=== PATIENT | male | born 1975 | race Caucasian/White ===

== ENCOUNTER → 2016-08-26 | Outpatient (CLI) | payer OTHER ==
--- NOTE | 2016-08-27 21:57 | EKG ---
Date Performed: 08/26/2016 Time Performed: 14:07:56 PTAGE: 41 years EKG: Sinus rhythm Since previous tracing, no significant change noted NORMAL ECG PREVIOUS TRACING : 11/28/2015 12.19 DOCTOR: Maira Johnson Interpretating Date/Time 08/27/2016 21:56:29
== END ==
LOC: HCAV 13:54
PROVIDERS: ATTEND Family Medicine
DX: I95.9 Hypotension, unspecified (principal); R00.0 Tachycardia, unspecified
CPT/HCPCS: 93005

== ENCOUNTER 2017-08-13 15:01 | Emergency (ER) | payer OTHER ==
[~2017-08-13] VITALS: Ht 188 cm; Wt 111.0 kg
[2017-08-13 15:17] VITALS: BP 161/67; PULSE 99; RESP 17; TEMP 98.2; O2SAT 98
[2017-08-13 15:50] LABS: AUTOMATED NEUTROPHIL # 6.5 TH/MM3 (1.8-7.7); BASOPHIL # 0.1 TH/MM3 (0-0.2); BASOPHIL % 0.5 % (0.0-2.0); EOSINOPHIL # 0.2 TH/MM3 (0-0.4); EOSINOPHIL % 2.2 % (0.0-4.0); HEMATOCRIT 43.4 % (39.0-51.0); HEMOGLOBIN 15.7 GM/DL (13.0-17.0); LYMPH % 31.3 % (9.0-44.0); LYMPHOCYTE # 3.3 TH/MM3 (1.0-4.8); MEAN CELL VOLUME 87.8 FL (80.0-100.0); MEAN CORPUSCULAR HEMOGLOBIN 31.7 PG (27.0-34.0); MEAN PLATELET VOLUME 7.6 FL (7.0-11.0); MONO % 4.7 % (0.0-8.0); MONOCYTE # 0.5 TH/MM3 (0-0.9); NEUT % 61.3 % (16.0-70.0); PLATELET COUNT 367 TH/MM3 (150-450); RED BLOOD COUNT 4.94 MIL/MM3 (4.50-5.90); RED CELL DISTRIBUTION WIDTH 13.8 % (11.6-17.2); WHITE BLOOD COUNT 10.6 TH/MM3 (4.0-11.0)
[2017-08-13 16:00] VITALS: BP 137/68; PULSE 96; RESP 18; O2SAT 96
[2017-08-13 16:06] LABS: BILIRUBIN, URINE NEG (NEG); BLOOD, URINE NEG (NEG); GLUCOSE,URINE 1000 mg/dL (NEG); KETONE, URINE NEG (NEG); NITRITE,URINE NEG (NEG); PH, URINE 5.5 (5.0-8.5); URINE COLOR YELLOW (YELLW/STRAW); URINE LEUKOCYTE ESTERASE NEG (NEG)
[2017-08-13] MEDS ORDERED: CYMB60CA PO (16:16)
[2017-08-13] MEDS ORDERED: BUPR150XL PO (16:16)
[2017-08-13] MEDS ORDERED: FURO1TAB60 PO (16:16)
[2017-08-13] MEDS ORDERED: VITA10002 PO (16:16)
[2017-08-13] MEDS ORDERED: NOVOLOGP2 SQ (16:16)
[2017-08-13] MEDS ORDERED: INSU1.2I SQ (16:16)
[2017-08-13] MEDS ORDERED: VITA100018 PO (16:16)
[2017-08-13] MEDS ORDERED: ATOR20TA15 PO (16:16)
[2017-08-13] MEDS ORDERED: METO50TA PO (16:16)
[2017-08-13] MEDS ORDERED: LORA1TAB12 PO (16:16)
[2017-08-13] MEDS ORDERED: AMLO5TAB2 PO (16:16)
[2017-08-13] MEDS ORDERED: OXCA150T PO (16:16)
[2017-08-13] MEDS ORDERED: METF1000 PO (16:16)
[2017-08-13] MEDS ORDERED: IRON SUPP (16:16)
[2017-08-13 16:19] LABS: MEAN CORPUSCULAR HGB CONC 36.1 % (32.0-36.0)
[2017-08-13 16:29] LABS: ALBUMIN 4.5 GM/DL (3.4-5.0); ALT (GPT) 46 U/L (12-78); AST (GOT) 23 U/L (15-37); BICARBONATE 24.8 MEQ/L (21.0-32.0); BLOOD UREA NITROGEN 10 MG/DL (7-18); CALCIUM 9.6 MG/DL (8.5-10.1); CHLORIDE 106 MEQ/L (98-107); GLOMERULAR FILTRATION RATE 73 ML/MIN (>89); GLUCOSE,RANDOM 387 MG/DL (74-106); SODIUM (NA) 141 MEQ/L (136-145)
[2017-08-13] MEDS ORDERED: INSULIN ASPART 1,000 UNITS/10 ML VIAL SQ ONE (16:30)
[2017-08-13] MEDS ORDERED: SODIUM CHLOR 0.9% 1000 ML INJ 1,000 ML IV ONE ×2 (16:30)
[2017-08-13 16:31] LABS: ALKALINE PHOSPHATASE 144 U/L (45-117); TOTAL BILIRUBIN ADULT 0.3 MG/DL (0.2-1.0); TOTAL PROTEIN 7.9 GM/DL (6.4-8.2)
--- NOTE | 2017-08-13 17:16 | PD ---
HPI Chief Complaint: Diabetic Time Seen by Provider: 16:07 Travel History International Travel<30 days: No Contact w/Intl Traveler<30days: No Traveled to known affect area: No History of Present Illness HPI Is a 42-year-old man presents to the emergency department complaining of migrating pains in his head chest left shoulder back and arms. He is a history of arthritis, fibromyalgia. He states the pain in his left shoulder is been worse over the past week. Blood sugars have been out of control, and the 300s at home. Primary doctor is making an adjustment to his Metformin to a combination of metformin and another medication but the patient has not gotten medication from the pharmacy yet. Last A1c was reportedly 11. Was feeling worse at home and so came to the emergency department today. History Past Medical History Narrative Medical Diabetes Arthritis, fibromyalgia, chronic pain Depression and anxiety Social History Alcohol Use: No Tobacco Use: Yes ("WORKING ON QUITTING") Allergies-Medications (Allergen,Severity, Reaction): Coded Allergies: amitriptyline (Unverified Allergy, Severe, Edema, 08/13/17) nicotine (Unverified Allergy, Severe, Edema, 08/13/17) Sulfa (Sulfonamide Antibiotics) (Unverified Adverse Reaction, Severe, Rash , 08/13/17) Reported Meds & Prescriptions Reported Meds & Active Scripts Active Reported Metoprolol Tartrate 50 Mg Tab 50 Mg PO DAILY Oxcarbazepine 150 Mg Tab 150 Mg PO Q8HR Lorazepam 1 Mg Tab 1 Mg PO Q8H PRN Cymbalta DR (Duloxetine HCl) 60 Mg Capdr 60 Mg PO BID Wellbutrin Xl 24 HR (Bupropion HCl) 150 Mg Tab 450 Mg PO DAILY Amlodipine (Amlodipine Besylate) 5 Mg Tab 5 Mg PO DAILY Review of Systems Except as stated in HPI: all other systems reviewed are Neg Physical Exam Narrative GENERAL: 42-year-old man, well-appearing, no acute distress. SKIN: Focused skin assessment warm/dry. HEAD: Atraumatic. Normocephalic. EYES: Pupils equal and round. No scleral icterus. No injection or drainage. ENT: No nasal bleeding or discharge. Mucous membranes pink and moist. NECK: Trachea midline. No JVD. CARDIOVASCULAR: Regular rate and rhythm. No murmur appreciated. RESPIRATORY: No accessory muscle use. Clear to auscultation. Breath sounds equal bilaterally. GASTROINTESTINAL: Abdomen soft, non-tender, nondistended. Hepatic and splenic margins not palpable. MUSCULOSKELETAL: No obvious deformities. No clubbing. No cyanosis. No edema. NEUROLOGICAL: Awake and alert. No obvious cranial nerve deficits. Motor grossly within normal limits. Normal speech. PSYCHIATRIC: Appropriate mood and affect; insight and judgment normal. Data Data Last Documented VS Vital Signs Date Time Temp Pulse Resp B/P (MAP) Pulse Ox O2 Delivery O2 Flow Rate FiO2 08/13/17 16:00 96 18 137/68 (91) 96 Room Air 08/13/17 15:17 98.2 Orders Orders Complete Blood Count With Diff (08/13/17 15:21) Blood Glucose (08/13/17 15:21) Comprehensive Metabolic Panel (08/13/17 15:21) Urinalysis - C+S If Indicated (08/13/17 15:21) Sodium Chlor 0.9% 1000 Ml Inj (Ns 1000 M (08/13/17 16:30) Sodium Chlor 0.9% 1000 Ml Inj (Ns 1000 M (08/13/17 16:30) Iv Access Insert/Monitor (08/13/17 16:26) Insulin Aspart Inj (Novolog Inj) (08/13/17 16:30) Labs Laboratory Tests Test 08/13/17 15:42 White Blood Count 10.6 TH/MM3 Red Blood Count 4.94 MIL/MM3 Hemoglobin 15.7 GM/DL Hematocrit 43.4 % Mean Corpuscular Volume 87.8 FL Mean Corpuscular Hemoglobin 31.7 PG Mean Corpuscular Hemoglobin Concent 36.1 % Red Cell Distribution Width 13.8 % Platelet Count 367 TH/MM3 Mean Platelet Volume 7.6 FL Neutrophils (%) (Auto) 61.3 % Lymphocytes (%) (Auto) 31.3 % Monocytes (%) (Auto) 4.7 % Eosinophils (%) (Auto) 2.2 % Basophils (%) (Auto) 0.5 % Neutrophils # (Auto) 6.5 TH/MM3 Lymphocytes # (Auto) 3.3 TH/MM3 Monocytes # (Auto) 0.5 TH/MM3 Eosinophils # (Auto) 0.2 TH/MM3 Basophils # (Auto) 0.1 TH/MM3 CBC Comment AUTO DIFF Urine Color YELLOW Urine Turbidity CLEAR Urine pH 5.5 Urine Specific [place] 1.034 Urine Protein NEG mg/dL Urine Glucose (UA) 1000 mg/dL Urine Ketones NEG mg/dL Urine Occult Blood NEG Urine Nitrite NEG Urine Bilirubin NEG Urine Urobilinogen LESS THAN 2.0 MG/DL Urine Leukocyte Esterase NEG Urine WBC LESS THAN 1 /hpf Microscopic Urinalysis Comment CULT NOT INDICATED Blood Urea Nitrogen 10 MG/DL Creatinine 1.10 MG/DL Random Glucose 387 MG/DL Total Protein 7.9 GM/DL Albumin 4.5 GM/DL Calcium Level 9.6 MG/DL Alkaline Phosphatase 144 U/L Aspartate Amino Transf (AST/SGOT) 23 U/L Alanine Aminotransferase (ALT/SGPT) 46 U/L Total Bilirubin 0.3 MG/DL Sodium Level 141 MEQ/L Potassium Level 4.0 MEQ/L Chloride Level 106 MEQ/L Carbon Dioxide Level 24.8 MEQ/L Anion Gap 10 MEQ/L Estimat Glomerular Filtration Rate 73 ML/MIN MDM Medical Decision Making Medical Screen Exam Complete: Yes Emergency Medical Condition: Yes Interpretation(s) LABS: CBC is unremarkable. CMP is remarkable for glucose 387. UA with glucose. Differential Diagnosis Hyperglycemia, dehydration, uncontrolled diabetes, radiculopathy, other Narrative Course Medical decision making 42-year-old man, here with feeling poorly in the setting of marked hyperglycemia. Also various pain complaints and think are probably unrelated. Will give IV fluid rehydration. Recommend changing his to J0 225 units daily, continue sliding scale insulin. Diagnosis Primary Impression: Hyperglycemia Additional Instructions: Increase your Trujeo to 25 units daily. Continue sliding-scale insulin. Follow-up with her primary doctor tomorrow. Return to the emergency department for any new or worsening symptoms. Med/Other Pt SpecificInfo: Existing Med Changed Disposition: 01 DISCHARGE HOME Condition: Stable Reginaldo Mclaughlin MD Aug 13, 2017 17:16
== END 2017-08-13 17:51 | disposition home or self-care (01) ==
LOC: NEPD 15:01
DX: E11.65 Type 2 diabetes mellitus with hyperglycemia (principal); M25.512 Pain in left shoulder; R51 Headache; R07.9 Chest pain, unspecified; M54.9 Dorsalgia, unspecified; G89.29 Other chronic pain; M79.7 Fibromyalgia; M19.90 Unspecified osteoarthritis, unspecified site; F41.8 Other specified anxiety disorders; Z72.0 Tobacco use; Z79.4 Long term (current) use of insulin
CPT/HCPCS: 80053; 81001; 85025; 96372; 99284; J1815; J7030

== ENCOUNTER 2017-08-18 05:13 | Emergency (ER) | payer OTHER ==
[~2017-08-18] VITALS: Ht 188 cm; Wt 114.0 kg
[~2017-08-18 05:13] MED LIST: AMLO5TAB2 PO; ATOR20TA15 PO; BUPR150XL PO; CYMB60CA PO; FURO1TAB60 PO; INSU1.2I SQ; IRON SUPP; LORA1TAB12 PO; METF1000 PO; METO50TA PO; NOVOLOGP2 SQ; OXCA150T PO; VITA100018 PO; VITA10002 PO
[2017-08-18 05:18] VITALS: BP 121/68; PULSE 83; RESP 17; TEMP 98.3; O2SAT 98
[2017-08-18] MEDS ORDERED: SODIUM CHLOR 0.9% 1000 ML INJ 1,000 ML IV ONE (06:00)
[2017-08-18 06:24] LABS: AUTOMATED NEUTROPHIL # 3.7 TH/MM3 (1.8-7.7); BASOPHIL # 0.1 TH/MM3 (0-0.2); BASOPHIL % 1.3 % (0.0-2.0); EOSINOPHIL # 0.2 TH/MM3 (0-0.4); EOSINOPHIL % 3.8 % (0.0-4.0); HEMATOCRIT 43.3 % (39.0-51.0); HEMOGLOBIN 15.1 GM/DL (13.0-17.0); LYMPH % 30.7 % (9.0-44.0); LYMPHOCYTE # 1.9 TH/MM3 (1.0-4.8); MEAN CELL VOLUME 90.7 FL (80.0-100.0); MEAN CORPUSCULAR HEMOGLOBIN 31.7 PG (27.0-34.0); MEAN PLATELET VOLUME 7.7 FL (7.0-11.0); MONO % 3.9 % (0.0-8.0); MONOCYTE # 0.2 TH/MM3 (0-0.9); NEUT % 60.3 % (16.0-70.0); PLATELET COUNT 296 TH/MM3 (150-450); RED BLOOD COUNT 4.77 MIL/MM3 (4.50-5.90); RED CELL DISTRIBUTION WIDTH 13.7 % (11.6-17.2); WHITE BLOOD COUNT 6.2 TH/MM3 (4.0-11.0)
[2017-08-18 06:25] LABS: BILIRUBIN, URINE NEG (NEG); BLOOD, URINE NEG (NEG); GLUCOSE,URINE 1000 mg/dL (NEG); KETONE, URINE NEG (NEG); NITRITE,URINE NEG (NEG); PH, URINE 5.5 (5.0-8.5); URINE COLOR LIGHT-YELLOW (YELLW/STRAW); URINE LEUKOCYTE ESTERASE NEG (NEG)
[2017-08-18 06:32] VITALS: RESP 20
[2017-08-18 06:33] VITALS: BP 121/68; PULSE 73; RESP 20; O2SAT 98
[2017-08-18 06:46] LABS: ALBUMIN 3.8 GM/DL (3.4-5.0); ALT (GPT) 36 U/L (12-78); AST (GOT) 16 U/L (15-37); BICARBONATE 24.3 MEQ/L (21.0-32.0); BLOOD UREA NITROGEN 9 MG/DL (7-18); CALCIUM 8.6 MG/DL (8.5-10.1); CHLORIDE 98 MEQ/L (98-107); CREATININE 1.25 MG/DL (0.60-1.30); GLOMERULAR FILTRATION RATE 63 ML/MIN (>89); MAGNESIUM 1.8 MG/DL (1.5-2.5); SODIUM (NA) 132 MEQ/L (136-145)
--- NOTE | 2017-08-18 06:48 | PD ---
HPI Chief Complaint: Diabetic Time Seen by Provider: 05:50 Travel History International Travel<30 days: No Contact w/Intl Traveler<30days: No Traveled to known affect area: No History of Present Illness HPI The patient is a 42 year old male who presents to the [facility] emergency department with a history of hyperglycemia that has gradually been worsening over the last month. He reports that in June the only recent changes to his medication regimen prior to the hyperglycemia beginning was being started on a thyroid supplement for hypothyroid disorder, and being started on Humira for rheumatoid arthritis. He recently established with a new primary care physician , Dr. Mccloud, 1 week ago. His Tuojeo was increased from 20-30 units and he was also placed on Janumet in an attempt to better control his blood sugar, however his blood sugar over the last week has continued to be very high. His only other recent history is significant for him being diagnosed with a lung infection with a prior history of chronic bronchitis. He was on a Zpack that did not help, and then a second antibiotic that he cannot recall the name of. He reports that now his productive cough is improving. He has 1 day left on the course of antibiotic. He was dx with Diabetes 5 years ago. He last administered sliding scale insulin 11 Units at 11PM last night. [facility] Past Medical History Narrative Medical The patient's past medical history is significant for rheumatoid arthritis, diabetes mellitus, chronic bronchitis. Arthritis: Yes Autoimmune Disease: Yes (RHUEMETOID ARTHRITIS) Depression: Yes Cardiovascular Problems: Yes (HTN) High Cholesterol: Yes Diabetes: Yes Patient Takes Glucophage: No Diminished Hearing: No Past Surgical History Narrative Surgical The patient's past surgical history is significant for cholecystectomy, tonsil and adenoidectomy. Cholecystectomy: Yes Tonsillectomy: Yes (and adnoids) Other Surgery: Yes (cyst or lymph node removed from neck (benin)) Social History Alcohol Use: No Tobacco Use: Yes (cigar 2 x per day) Substance Use: No Allergies-Medications (Allergen,Severity, Reaction): Coded Allergies: amitriptyline (Unverified Allergy, Severe, Edema, 08/13/17) nicotine (Unverified Allergy, Severe, Edema, 08/13/17) Sulfa (Sulfonamide Antibiotics) (Unverified Adverse Reaction, Severe, Rash , 08/13/17) Reported Meds & Prescriptions Reported Meds & Active Scripts Active Reported Levothyroxine (Levothyroxine Sodium) 50 Mcg Tab 50 Mcg PO DAILY Vitamin B-12 (Cyanocobalamin) 1,000 Mcg Tab 2,500 Mcg PO DAILY Vitamin D3 (Cholecalciferol) 1,000 Unit Tab 1,000 Units PO DAILY [Iron Supp] Lasix (Furosemide) 40 Mg Tab 40 Mg PO DAILY Atorvastatin (Atorvastatin Calcium) 20 Mg Tab 20 Mg PO HS Novolog Inj (Insulin Aspart) 1,000 Unit/10 Ml Vial 0 SQ DIRECTED Sliding Scale as directed. [place] Solostar Pen Inj (Insulin Glargine) 300 Unit/Ml Pen 20 Units SQ HS Amlodipine (Amlodipine Besylate) 5 Mg Tab 5 Mg PO DAILY Metoprolol Tartrate 50 Mg Tab 50 Mg PO DAILY Oxcarbazepine 150 Mg Tab 150 Mg PO Q8HR Lorazepam 1 Mg Tab 1 Mg PO Q8H PRN Cymbalta DR (Duloxetine HCl) 60 Mg Capdr 60 Mg PO BID Wellbutrin Xl 24 HR (Bupropion HCl) 150 Mg Tab 450 Mg PO DAILY Review of Systems Except as stated in HPI: all other systems reviewed are Neg General / Constitutional: No: Fever Eyes: No: Visual changes HENT: Positive: Congestion, No: Headaches Cardiovascular: No: Chest Pain or Discomfort Respiratory: Positive: Cough, No: Shortness of Breath Gastrointestinal: No: Abdominal Pain Genitourinary: No: Dysuria Musculoskeletal: No: Pain Skin: No Rash Neurologic: No: Weakness Psychiatric: No: Depression Endocrine: Positive: Polyuria, Polydipsia Hematologic/Lymphatic: No: Easy Bruising Physical Exam Narrative General: The patient is a well-developed well-nourished male in no acute distress. Head and Neck exam: Head is normocephalic atraumatic. Eyes: EOMI, pupils are equal round and reactive to light. Nose: Midline septum with pink mucous membranes Mouth: Dentition unremarkable. Moist mucus membranes. Posterior oropharynx is not erythematous. No tonsillar hypertrophy. Uvula midline. Airway patent. Neck: No palpable lymphadenopathy. No nuchal rigidity. No thyromegaly. Cardiovascular: Regular rate and rhythm without murmurs, gallops, or rubs. Lungs: Clear to auscultation bilaterally. No wheezes, rhonchi, or rales. Abdomen: Soft, without tenderness to palpation in all 4 quadrants of the abdomen. No guarding, rebound, or rigidity. Negative [place] sign. Extremities: No clubbing, cyanosis, or edema. 2+ pulses in all 4 extremities. No calf tenderness on palpation. Back: No spinous process tenderness to palpation. No costovertebral angle tenderness to palpation. Neurologic Exam: Grossly nonfocal. Skin Exam: No rash noted. Intact skin that is warm and dry. Data Data Last Documented VS Vital Signs Date Time Temp Pulse Resp B/P (MAP) Pulse Ox O2 Delivery O2 Flow Rate FiO2 08/18/17 10:30 08/18/17 10:00 78 20 100 Room Air 08/18/17 05:18 98.3 Orders Orders Electrocardiogram (08/18/17 05:53) Complete Blood Count With Diff (08/18/17 05:53) Comprehensive Metabolic Panel (08/18/17 05:53) Creatine Kinase (Cpk) (08/18/17 05:53) Ckmb (Isoenzyme) Profile (08/18/17 05:53) Troponin I (08/18/17 05:53) B-Type Natriuretic Peptide (08/18/17 05:53) Lipase (08/18/17 05:53) Urinalysis - C+S If Indicated (08/18/17 05:53) Magnesium (Mg) (08/18/17 05:53) Blood Gas Venous Ph (08/18/17 05:53) Beta Hydroxybutyrate (Acetone) (08/18/17 05:53) Chest, Single Ap (08/18/17 05:53) Iv Access Insert/Monitor (08/18/17 05:53) Ecg Monitoring (08/18/17 05:53) Oximetry (08/18/17 05:53) Sodium Chlor 0.9% 1000 Ml Inj (Ns 1000 M (08/18/17 06:00) Thyroid Stimulating Hormone (08/18/17 07:08) Insulin Human Regular Inj (Novolin R Inj (08/18/17 07:15) Sodium Chlorid 0.9% 500 Ml Inj (Ns 500 M (08/18/17 07:15) Bedside Glucose JOSAFAT.CSUGAR (08/18/17 08:23) Ed Discharge Order (08/18/17 10:00) Labs Laboratory Tests Test 08/18/17 06:05 08/18/17 06:15 White Blood Count 6.2 TH/MM3 Red Blood Count 4.77 MIL/MM3 Hemoglobin 15.1 GM/DL Hematocrit 43.3 % Mean Corpuscular Volume 90.7 FL Mean Corpuscular Hemoglobin 31.7 PG Mean Corpuscular Hemoglobin Concent 35.0 % Red Cell Distribution Width 13.7 % Platelet Count 296 TH/MM3 Mean Platelet Volume 7.7 FL Neutrophils (%) (Auto) 60.3 % Lymphocytes (%) (Auto) 30.7 % Monocytes (%) (Auto) 3.9 % Eosinophils (%) (Auto) 3.8 % Basophils (%) (Auto) 1.3 % Neutrophils # (Auto) 3.7 TH/MM3 Lymphocytes # (Auto) 1.9 TH/MM3 Monocytes # (Auto) 0.2 TH/MM3 Eosinophils # (Auto) 0.2 TH/MM3 Basophils # (Auto) 0.1 TH/MM3 CBC Comment DIFF FINAL Differential Comment Urine Color LIGHT-YELLOW Urine Turbidity CLEAR Urine pH 5.5 Urine Specific [place] 1.030 Urine Protein NEG mg/dL Urine Glucose (UA) 1000 mg/dL Urine Ketones NEG mg/dL Urine Occult Blood NEG Urine Nitrite NEG Urine Bilirubin NEG Urine Urobilinogen LESS THAN 2.0 MG/DL Urine Leukocyte Esterase NEG Urine RBC LESS THAN 1 /hpf Urine WBC LESS THAN 1 /hpf Microscopic Urinalysis Comment CULT NOT INDICATED Blood Urea Nitrogen 9 MG/DL Creatinine 1.25 MG/DL Random Glucose 556 MG/DL Total Protein 7.1 GM/DL Albumin 3.8 GM/DL Calcium Level 8.6 MG/DL Magnesium Level 1.8 MG/DL Alkaline Phosphatase 142 U/L Aspartate Amino Transf (AST/SGOT) 16 U/L Alanine Aminotransferase (ALT/SGPT) 36 U/L Total Bilirubin 0.3 MG/DL Sodium Level 132 MEQ/L Potassium Level 4.4 MEQ/L Chloride Level 98 MEQ/L Carbon Dioxide Level 24.3 MEQ/L Anion Gap 10 MEQ/L Estimat Glomerular Filtration Rate 63 ML/MIN Total Creatine Kinase 93 U/L Troponin I LESS THAN 0.02 NG/ML B-Type Natriuretic Peptide 7 PG/ML Lipase 150 U/L Thyroid Stimulating Hormone 3rd Gen 1.140 uIU/ML B-Hydroxybutyrate 0.08 MMOL/L Venous Blood pH 7.36 [facility] Medical Decision Making Medical Screen Exam Complete: Yes Emergency Medical Condition: Yes Medical Record Reviewed: Yes Interpretation(s) Last Impressions Chest X-Ray 08/18/17 0553 Signed Impressions: Service Date/Time: Friday, August 18, 2017 06:11 - CONCLUSION: The lungs are clear. Dalton Paris MD Differential Diagnosis DKA, versus hyper glycemic hyperosmolality, versus poorly controlled diabetes mellitus from recent infection, versus hyperglycemia as a side effect of new medication regimen. Narrative Course During the course of the patient's emergency department visit, the patient's history, examination, and differential diagnosis were reviewed with the patient. The patient was placed on a electronic device monitor with oximetry and frequent blood pressure monitoring. The patient had IV access obtained and blood work sent for analysis. The patient was initially provided normal saline 1 L IV fluid bolus followed by another normal saline 500 mL bolus. The patient's studies were reviewed and remarkable for A CBC that is within normal limits. A chest x-ray that shows no evidence of acute cardiopulmonary disease. A VBG that shows a pH of 7.36 ruling out DKA. The patient was given regular insulin 10 units subcutaneously 1. The patient's final laboratory studies are pending at the conclusion of my shift. The patient's case was checked out to the oncoming emergency room physician to disposition based on the conclusion of the patient's workup. Diagnosis Primary Impression: Hyperglycemia due to type 2 diabetes mellitus Qualified Codes: E11.65 - Type 2 diabetes mellitus with hyperglycemia Marlene Hernandez MD Aug 18, 2017 06:48
[2017-08-18 06:56] LABS: ALKALINE PHOSPHATASE 142 U/L (45-117); TOTAL BILIRUBIN ADULT 0.3 MG/DL (0.2-1.0); TOTAL PROTEIN 7.1 GM/DL (6.4-8.2)
[2017-08-18 07:04] LABS: TROPONIN I LESS THAN 0.02 NG/ML (0.02-0.05)
--- NOTE | 2017-08-18 07:12 | RADRPT ---
EXAM DATE/TIME: 08/18/2017 06:11 [place] COMPARISON: CHEST SINGLE AP, May 30, 2016, 8:12. INDICATIONS : Short of breath. MEDICAL HISTORY : Hypertension. Hypercholesterolemia. diabetes SURGICAL HISTORY : Tonsillectomy. ENCOUNTER: Subsequent ACUITY: 1 week PAIN SCORE: 0/10 LOCATION: Bilateral chest FINDINGS: A single view of the chest demonstrates the lungs to be symmetrically aerated without evidence of mas s, infiltrate or effusion. The cardiomediastinal contours are unremarkable. Osseous structures are intact. CONCLUSION: The lungs are clear. Dalton Paris MD on August 18, 2017 at 7:10 Board Certified Radiologist. This report was verified electronically.
[2017-08-18] MEDS ORDERED: SODIUM CHLORID 0.9% 500 ML INJ 500 ML IV ONE (07:15)
[2017-08-18] MEDS ORDERED: INSULIN HUMAN REGULAR 1,000 UNITS/10 ML VIAL SQ ONE (07:15)
[2017-08-18] MEDS ORDERED: LEVO50TA4 PO (07:25)
[2017-08-18 07:26] LABS: GLUCOSE,RANDOM 556 MG/DL (74-106)
--- NOTE | 2017-08-18 09:59 | PD ---
Physical Exam Date Seen by Provider: Aug 18, 2017 Time Seen by Provider: 07:00 Narrative Patient seen and evaluated initially by Dr. Hernandez, please see Dr. Hernandez's note for further details. Patient was signed out to me awaiting his blood sugars to come down after being given insulin for blood sugars over 500. Laboratory Tests Test 08/18/17 06:05 08/18/17 06:15 Urine Glucose (UA) 1000 mg/dL (NEG) Random Glucose 556 MG/DL (74-106) Alkaline Phosphatase 142 U/L (45-117) Sodium Level 132 MEQ/L (136-145) Estimat Glomerular Filtration Rate 63 ML/MIN (>89) Troponin I LESS THAN 0.02 NG/ML Last 24 hours Impressions Chest X-Ray 08/18/17552 Signed Impressions: Service Date/Time: Friday, August 18, 2017 06:11 - CONCLUSION: The lungs are clear. Dalton Paris MD Patient's blood sugar slowly came down to the 300s at 9:30 AM and my plan would be to release him with follow-up to primary care physician. Patient may also need endocrinology follow-up as well considering his poorly controlled diabetes. Return for any worsening in symptoms as needed. The plan has been discussed with him and he states understanding. Data Data Last Documented VS Vital Signs Date Time Temp Pulse Resp B/P (MAP) Pulse Ox O2 Delivery O2 Flow Rate FiO2 08/18/17 06:33 73 20 121/68 (85) 98 Room Air 08/18/17 05:18 98.3 Orders Orders Electrocardiogram (08/18/17 05:53) Complete Blood Count With Diff (08/18/17 05:53) Comprehensive Metabolic Panel (08/18/17 05:53) Creatine Kinase (Cpk) (08/18/17 05:53) Ckmb (Isoenzyme) Profile (08/18/17 05:53) Troponin I (08/18/17 05:53) B-Type Natriuretic Peptide (08/18/17 05:53) Lipase (08/18/17 05:53) Urinalysis - C+S If Indicated (08/18/17 05:53) Magnesium (Mg) (08/18/17 05:53) Blood Gas Venous Ph (08/18/17 05:53) Beta Hydroxybutyrate (Acetone) (08/18/17 05:53) Chest, Single Ap (08/18/17 05:53) Iv Access Insert/Monitor (08/18/17 05:53) Ecg Monitoring (08/18/17 05:53) Oximetry (08/18/17 05:53) Sodium Chlor 0.9% 1000 Ml Inj (Ns 1000 M (08/18/17 06:00) Thyroid Stimulating Hormone (08/18/17 07:08) Insulin Human Regular Inj (Novolin R Inj (08/18/17 07:15) Sodium Chlorid 0.9% 500 Ml Inj (Ns 500 M (08/18/17 07:15) Bedside Glucose JOSAFAT.CSUGAR (08/18/17 08:23) Ed Discharge Order (08/18/17 10:00) Labs Laboratory Tests Test 08/18/17 06:05 08/18/17 06:15 White Blood Count 6.2 TH/MM3 Red Blood Count 4.77 MIL/MM3 Hemoglobin 15.1 GM/DL Hematocrit 43.3 % Mean Corpuscular Volume 90.7 FL Mean Corpuscular Hemoglobin 31.7 PG Mean Corpuscular Hemoglobin Concent 35.0 % Red Cell Distribution Width 13.7 % Platelet Count 296 TH/MM3 Mean Platelet Volume 7.7 FL Neutrophils (%) (Auto) 60.3 % Lymphocytes (%) (Auto) 30.7 % Monocytes (%) (Auto) 3.9 % Eosinophils (%) (Auto) 3.8 % Basophils (%) (Auto) 1.3 % Neutrophils # (Auto) 3.7 TH/MM3 Lymphocytes # (Auto) 1.9 TH/MM3 Monocytes # (Auto) 0.2 TH/MM3 Eosinophils # (Auto) 0.2 TH/MM3 Basophils # (Auto) 0.1 TH/MM3 CBC Comment DIFF FINAL Differential Comment Urine Color LIGHT-YELLOW Urine Turbidity CLEAR Urine pH 5.5 Urine Specific [place] 1.030 Urine Protein NEG mg/dL Urine Glucose (UA) 1000 mg/dL Urine Ketones NEG mg/dL Urine Occult Blood NEG Urine Nitrite NEG Urine Bilirubin NEG Urine Urobilinogen LESS THAN 2.0 MG/DL Urine Leukocyte Esterase NEG Urine RBC LESS THAN 1 /hpf Urine WBC LESS THAN 1 /hpf Microscopic Urinalysis Comment CULT NOT INDICATED Blood Urea Nitrogen 9 MG/DL Creatinine 1.25 MG/DL Random Glucose 556 MG/DL Total Protein 7.1 GM/DL Albumin 3.8 GM/DL Calcium Level 8.6 MG/DL Magnesium Level 1.8 MG/DL Alkaline Phosphatase 142 U/L Aspartate Amino Transf (AST/SGOT) 16 U/L Alanine Aminotransferase (ALT/SGPT) 36 U/L Total Bilirubin 0.3 MG/DL Sodium Level 132 MEQ/L Potassium Level 4.4 MEQ/L Chloride Level 98 MEQ/L Carbon Dioxide Level 24.3 MEQ/L Anion Gap 10 MEQ/L Estimat Glomerular Filtration Rate 63 ML/MIN Total Creatine Kinase 93 U/L Troponin I LESS THAN 0.02 NG/ML B-Type Natriuretic Peptide 7 PG/ML Lipase 150 U/L Thyroid Stimulating Hormone 3rd Gen 1.140 uIU/ML B-Hydroxybutyrate 0.08 MMOL/L Venous Blood pH 7.36 MDM Medical Record Reviewed: Yes Supervised Visit with ERLINDA: No Diagnosis Primary Impression: Hyperglycemia Disposition: 01 DISCHARGE HOME Condition: Stable Ally Luna MD Aug 18, 2017 09:59
[2017-08-18 10:00] VITALS: BP 138/67; PULSE 78; RESP 20; O2SAT 100
--- NOTE | 2017-08-18 11:51 | EKG ---
Date Performed: 08/18/2017 Time Performed: 06:44:04 PTAGE: 42 years EKG: Sinus rhythm INCOMPLETE RIGHT BUNDLE BRANCH BLOCK Since the previous tracing, no significant change noted BORDERL INE ECG PREVIOUS TRACING : 08/26/2016 14.07 DOCTOR: Frances Gaona Interpretating Date/Time 08/18/2017 11:49:37
== END 2017-08-18 10:40 | disposition home or self-care (01) ==
LOC: NEPE 05:13
DX: E11.65 Type 2 diabetes mellitus with hyperglycemia (principal); R05 Cough; E03.9 Hypothyroidism, unspecified; M06.9 Rheumatoid arthritis, unspecified; I10 Essential (primary) hypertension; E78.00 Pure hypercholesterolemia, unspecified; F32.9 Major depressive disorder, single episode, unspecified; F17.290 Nicotine dependence, other tobacco product, uncomplicated; Z79.4 Long term (current) use of insulin
CPT/HCPCS: 71045; 80053; 81001; 82010; 82550; 82800; 83690; 83735; 83880; 84443; 84484; 85025; 93005; 96360; 96372; 99285; J1815; J7030; J7040